=== PATIENT | female | born 1990 | race Caucasian/White ===

== ENCOUNTER 2021-05-14 09:18 | Emergency (ER) | payer OTHER ==
[~2021-05-14] VITALS: Ht 152.4 cm; Wt 72.6 kg
[2021-05-14] MEDS ORDERED: LESSINA1 EACH PO (09:47)
[2021-05-14] MEDS ORDERED: ZITHROMAX200 MG PO (13:31)
[2021-05-14] MEDS ORDERED: LEVSIN/SL0.125 MG SL (13:31)
[2021-05-14] MEDS ORDERED: PEPCID AC20 MG PO (13:31)
== END 2021-05-14 13:37 | disposition home or self-care (01) ==
LOC: ER 09:18
DX: K29.00 Acute gastritis without bleeding (principal); Z88.6 Allergy status to analgesic agent; Z88.0 Allergy status to penicillin; Z88.2 Allergy status to sulfonamides

== ENCOUNTER 2022-05-25 11:51 | Inpatient (IN) | payer OTHER ==
[~2022-05-25] VITALS: Ht 152.4 cm; Wt 85.7 kg
[~2022-05-25 11:51] MED LIST: LESSINA1 EACH PO; LEVSIN/SL0.125 MG SL; PEPCID AC20 MG PO; PRENATAL TABLE1 EAC3 PO; ZITHROMAX200 MG PO
[2022-05-25] MEDS ORDERED: PRENATAL CAPLE1 EAC1 PO ×2 (13:21→13:22)
[2022-05-26] MEDS ORDERED: FAMOTIDINE20 MG (10:54)
[2022-06-06] MEDS ORDERED: NAPR500T14 PO (08:48)
== END 2022-06-06 11:54 | disposition home or self-care (01) | DRG 807 ==
LOC: LDR 11:51 → OB/GYN 05-27 11:00 → LDR 05-28 10:47 → OB/GYN 05-28 18:40
PROVIDERS: ADMIT Obstetrics & Gynecology; ATTEND Obstetrics & Gynecology
PROC: 4A1HXCZ Monitoring of Products of Conception, Cardiac Rate, External Approach (ICD-10-PCS; 2022-05-25)
PROC: 10E0XZZ Delivery of Products of Conception, External Approach (ICD-10-PCS; principal; 2022-06-04)
PROC: 0W8NXZZ Division of Female Perineum, External Approach (ICD-10-PCS; 2022-06-04)
DX: O60.23X0 Term delivery with preterm labor, third trimester, not applicable or unspecified (principal); Z37.0 Single live birth; Z3A.35 35 weeks gestation of pregnancy; Z20.822 Contact with and (suspected) exposure to COVID-19